=== PATIENT | female | born 1945 | race Caucasian/White ===

== ENCOUNTER → 2021-06-06 | Day surgery (SDC) | payer OTHER, MEDICARE ==
[~2021-06-06] VITALS: Ht 152.4 cm; Wt 52.2 kg
[~2021-06-06] MED LIST: APAP650 PO; ASPIRIN EC81 M1 PO; CALCIUM + VITA1 EACH PO; CELEXA20 MG PO; COLACE100 MG PO; LINZESS145 MCG PO; LIPITOR20 MG PO; LISINOPRIL2.5 MG PO; MOBIC15 MG PO; NORCO 5-325 TA1 EACH PO; OMEPRAZOLE40 MG PO; ONE-DAILY MULT1 EAC1 PO; PRILOSEC20 MG PO; REMERON15 M2 PO; SINGULAIR 10 MG10 M1 PO; TOPAMAX50 MG PO; TOPROL XL50 MG PO; VERAPAMIL ER300 MG; ZANAFLEX4 M1 PO; ZONEGRAN100 MG PO
--- NOTE | ~2021-06-06 | O ---
[facility] [place] [address] OPERATIVE REPORT Name: LOC VANCE Room #: REG [facility].#: [id number] Admission: 06/06/21 Attend Phys: Edmond Carcamo MD Discharge: Date of : 43 Report #: [id number] THIS REPORT FOR: cc: Sheree Baker MD,Sheree Carcamo,Edmond Costello MD ~ cc: Lani Baker MD, Viet Ly OD DATE OF SERVICE: 06/06/2021 PREOPERATIVE DIAGNOSIS: Unilateral left nasal lacrimal duct obstruction. POSTOPERATIVE DIAGNOSIS: Unilateral left nasal lacrimal duct obstruction. OPERATION PERFORMED: Unilateral left endoscopic dacryoplasty with silicone intubation. ANESTHESIA: General. COMPLICATIONS: None. INDICATIONS FOR SURGERY: This patient has acquired unilateral nasal lacrimal duct stenosis with chronic tearing and discharge. The current procedures are undertaken in order to improve the patient's level of lacrimal outflow and visual clarity. Informed consent was obtained to include but not limited to the potential risks for damage to the eye, loss of vision, bleeding, infection, failure to improve the problem and need for further surgery. DESCRIPTION OF OPERATION: The patient was taken to the operating room, where general anesthesia was administered. The medial canthus was anesthetized with 2% Xylocaine with epinephrine mixed with equal parts of 0.75% Marcaine with Wydase. The lateral wall of the nose was then injected with the same anesthetic mixture. The nose was packed with Afrin-soaked Cottonoids. The patient was then prepped and draped in the usual sterile fashion. The superior and inferior puncta were then atraumatically dilated with a punctum dilator. A size 0 lacrimal probe was then passed through the superior canalicular system and through the stenosed nasal lacrimal duct. The nasal packing was removed and the endoscope was brought into the field. The inferior turbinate was gently infractured with a Evergreen periosteal elevator to allow visualization of the inferior meatus in the area of the opening of the valve of Hasner in the nose. The probe was found and confirmed to be in the proper location. It was removed and subsequently replaced with a size 1 and a size 2 García probe, which also had their passage confirmed endoscopically to be in the [facility] [address] [place] [address] OPERATIVE REPORT Name: LOC VANCE Room #: REG [facility].#: [id number] Admission: 06/06/21 Attend Phys: Edmond Carcamo MD Discharge: Date of : 43 Report #: [id number] proper location. A 3 x 15 LacriCatheter was lubricated with a small quantity of ophthalmic antibiotic ointment. The LacriCatheter was then passed through the superior canalicular system and the stenosed nasal lacrimal duct. The LacriCatheter was confirmed to be in the proper location endoscopically intranasally in the inferior meatus. The LacriCatheter was inflated to 9 atmospheres for 90 seconds and deflated. The catheter was then inflated to 9 atmospheres for 60 seconds. The catheter was then withdrawn to the proximal black ring. It was then inflated to 9 atmospheres for 90 seconds. The balloon was then deflated and reinflated to 9 atmospheres for 60 seconds. The balloon was the aspirated and withdrawn to the distal black ring. It was then inflated to 9 atmospheres for 90 seconds. The balloon was deflated and reinflated to 9 atmospheres for 60 seconds. The balloon was then deflated and vigorously aspirated as it was withdrawn through the superior canalicular system. A Ferro tube was then passed through the superior canalicular system and out the dilated duct. The Ferro tube was secured under the inferior turbinate in the inferior meatus with a Ferro hook and retrieved endoscopically. The Ferro tube was then passed through the inferior canalicular system in a similar fashion and was retrieved endoscopically in the nose atraumatically. The Ferro tube was then secured to itself with 3 square throws and then to the lateral wall of the nose with a 5-0 Prolene suture. Antibiotic steroid drops were then placed in the eye. A small quantity of ophthalmic antibiotic ointment was placed on the Ferro tube. The patient was then transported to the recovery area with no anesthetic or operative complications being noted. By: [id number] Edmond Carcamo MD /nt
[2021-06-06 11:45] VITALS: BP 145/74
== END | disposition home or self-care (01) ==
LOC: OR 08:39
PROVIDERS: ATTEND Ophthalmology
DX: H04.552 Acquired stenosis of left nasolacrimal duct (principal); I10 Essential (primary) hypertension; E78.00 Pure hypercholesterolemia, unspecified; J45.909 Unspecified asthma, uncomplicated; E78.5 Hyperlipidemia, unspecified; K59.09 Other constipation; Z98.890 Other specified postprocedural states; Z79.899 Other long term (current) drug therapy; Z98.41 Cataract extraction status, right eye; Z20.822 Contact with and (suspected) exposure to COVID-19; Z98.42 Cataract extraction status, left eye; Z90.49 Acquired absence of other specified parts of digestive tract; Z79.82 Long term (current) use of aspirin
CPT/HCPCS: 50010; 50101; 50386; 50398; 51777; 55343; 56528; 62110; 62900; 70005